=== PATIENT | female | born 1980 | race African-American/Black ===

== ENCOUNTER 2017-09-05 17:59 | Emergency (ER) | payer OTHER, SELFPAY | END 2017-09-05 18:25 | disposition home or self-care (01) | LOC: SCSER 17:59 | DX: J40 Bronchitis, not specified as acute or chronic (principal) | CPT/HCPCS: 99283 ==

== ENCOUNTER 2018-01-07 06:41 | Emergency (ER) | payer SELFPAY | END 2018-01-07 07:40 | disposition home or self-care (01) | LOC: SCSER 06:41 | DX: J04.0 Acute laryngitis (principal); J32.9 Chronic sinusitis, unspecified; I10 Essential (primary) hypertension | CPT/HCPCS: 99283 ==